=== PATIENT | male | born 1935 | race Caucasian/White ===

== ENCOUNTER → 2021-02-18 | Outpatient (CLI) | payer MEDICARE ==
[2013-11-12 15:54] VITALS: BP 143/67
[~2021-02-18] MED LIST: ACET-704 PO; ACET500T68 PO; ALOG1TAB8 PO; APIX5TAB PO; ASPI-482 PO; ATOR40TA59 PO; BUPIVACAINE MPF 0.25% 10 ML VIAL. ONE; CHOL100013 PO; CYAN-25 PO; DABI150C PO; DOCU-158 PO; FURO-68 PO; GLIP10TA13 PO; HYDR-3164 PO; IBUP-1060 PO; INSU100V13 SQ; LIDO700A21 TP; LOSA-73 PO; METF10007 PO; METO50TA6 PO; OMEP20CA16 PO; PRAV40TA2 PO; TAMS0.4C2 PO; methylPREDNISolone ACETATE 40 MG/ML VIAL. ONE
--- NOTE | 2021-02-18 13:09 | PDOC1 ---
INITIAL PAIN CONSULT DATE OF SERVICE: DOS: DATE: 02/18/21 TIME: 13:01 CHIEF COMPLAINT: Chief Complaint: Left flank pain HISTORY OF PRESENT ILLNESS: 85-year-old male presents history of pain left flank and left low thoracic cage pain for many years not the result of any specific injury or accident that he is aware of getting worse with time and with rotation of motion as well as standing changing positions from sitting to standing and vice versa patient reports has been waking her from sleep occasionally but not every night but can once or twice most nights patient reports is worse with walking and standing and exacerbation no significant pain with deep breathing or respiratory excursion. Patient reports he has had multiple treatments over the years for a back pain and hip pain but this is different than on the left side only in the flank and inferior aspect of the rib cage on the left and around to radiating anteriorly to the flank and some anteriorly into the upper quadrant of the left abdomen. Patient also reports pain in the posterior hips bilaterally. Patient rates his disability from 0-10 10 me the worst is an 8 with him how responsibilities recreation 9 with social activity occupation 10 essential hyper 3 with self-care and 1 with life support activities. Patient is taking Tylenol as well as using lidocaine patch both of which helped by about 20 to 30%. Patient has not had any diagnostic studies this time is not had any physical therapy or other treatment modalities. Patient recently followed up with his neurosurgeon who is recommending conservative treatment. PAST MEDICAL HISTORY: PMH: Diabetes, hearing loss, arthritis, atrial fibrillation PREVIOUS SURGERIES: Past Surgical Hx: Lumbar laminectomy, bilateral cataract extraction, right hip joint replacement CURRENT MEDICATIONS: Current Meds: Active Scripts Medications Dose Route/Sig Max Daily Dose Days Date Category Dose Instructions Eliquis (Apixaban) 5 Mg Tablet 5 Mg PO BID 02/18/21 Reported Levemir (Insulin Detemir) 100 Unit/1 Ml Vial 20 Unit SQ DAILY 02/18/21 Reported Lidocaine PATCH (Lidocaine) 1 Each Adh..patch 2 Each TP DAILY 02/18/21 Reported REMOVE AFTER 12 HOURS Atorvastatin Calcium 40 Mg Tablet 1 Tab PO DAILY 02/18/21 Reported Kazano 12.5-1,000 Mg Tablet (Alogliptin Neeraj/Metformin Hcl) 1 Each Tablet 1 Each PO DAILY 02/18/21 Reported Acetaminophen 500 Mg Tablet 2 Tab PO PRN Q6HRS PRN 15 02/18/21 Reported Aspir 81 (Aspirin) 81 Mg Tablet.dr 81 Mg PO DAILY 11/09/13 Reported Vitamin B-12 (Cyanocobalamin (Vitamin B-12)) 1,000 Mcg Tablet 1,000 Mcg PO DAILY 11/09/13 Reported ALLERGIES; Allergies: Coded Allergies: morphine (Unverified Allergy, Intermediate, Nausea and Vomiting, 11/12/13) FAMILY HISTORY: Family Hx: No major medical problems or conditions that he is aware of. SOCIAL HISTORY: Social Hx: Patient drinks alcohol about twice a day does not smoke not use any illegal illicit or recreational drugs lives with his spouse has 4 children living at home lives locally in [facility] and is currently retired. REVIEW OF SYSTEMS: ROS: Positive for those items mentioned in history of present illness, all systems are reviewed, otherwise negative ,and are complete full and well-documented on patient's chart. PHYSICAL EXAM: VS: Blood pressure is 132/76 pulse 87 respirations 18 temperature is 98.9 F height is 6 foot weight is 217 pounds PE: PHYSICAL EXAMINATION: GENERAL: The patient is awake, alert, oriented, appropriate, very pleasant in demeanor, patient companied by his . HEENT: Shows normocephalic, atraumatic. Extraocular movements are intact and symmetrical. Oral cavity: Mucous membranes moist and pink. NECK: Shows anterior throat supple without palpable lymphadenopathy noted. Swallow reflex symmetrical. CHEST: Shows normal on inspection. Breath sounds are clear bilaterally, distant but no rales rhonchi wheezes auscultated. HEART: Shows S1, S2 clear. No murmurs auscultated. ABDOMEN: Soft, nontender, nondistended. No palpable organomegaly is noted. BACK: Shows spine grossly in the midline. Normal-appearing cervical lordotic curvature. There is slightly increased thoracic kyphosis, some minor flattening of the lumbar lordotic curvature. Patient's rib cage shows significant tenderness over the inferior rib margin on the left only not the right without any palpable fractures or healed fractures but with significant tenderness in the distal aspect of the T10-T11 and T12 ribs on the left side and continuing to the mid axillary line with some minor radiation to the left upper quadrant but only minimal right side is nontender without radiation. Patient shows good excursion full deep breath in and he will exhale without increase in pain. Lumbar paraspinous muscles show symmetrical on inspection, on palpation shows some moderate tenderness diffusely throughout the upper, middle and lower distribution of the paraspinous muscles without specific trigger points, without radiation of pain. The patient has good rotational motion of the lumbar spine, both laterally as well as extension and flexion without significant difficulty. No tenderness over the spinous processes, or sacrum but significant tenderness over the posterior superior iliac spine and the superior aspect of the sacroili ac joints right equal to left without radiation. EXTREMITIES: Lower extremities show deep tendon reflexes 1+ in the patellar and tendo calcaneus tendons. Motor exam is 4 on a scale of 5 with right dorsiflexion, extension, quadriceps and hamstring flexion and 4/5 on the left. Peripheral pulses are 1+ posterior tibial. No peripheral edema is noted bilaterally. Lower extremities are warm and dry to touch, equal in color and appearance. SKIN: Shows warm and dry, good turgor. No edema. No sores, rashes or bruising throughout. IMPRESSION: Impression: 85-year-old male with long history of left thoracic rib pain radiating anteriorly to the flank and left upper quadrant Previous lumbar laminectomy Diabetes Arthritis Atrial fibrillation Plan: Options were discussed with the patient patient spouse who accompanied him his visit today. We discussed conservative medical management physical therapies as well as interventional techniques. Patient would like pursue injection techniques. We discussed intercostal blocks on the left using description as well as anatomical models to describe the procedure. Risks discussed including but not limited to bleeding infection possibility of intravascular injection sequelae spread local anesthetic and numbness steroid medication including increased blood glucose as well as poor results regarding pain control and closure fluoroscopy. Patient understands wishes to proceed. Patient return to clinic in approximately 1 week for follow-up, was counseled as to return appointment, activity level, and side effect to be aware of. Patient in prone position under sterile prep and drape using C-arm fluoroscopic guidance left thoracic cage was identified and the [id number] ribs were identified, using external radial opaque marker using a 25-gauge needle was entered at the inferior aspect of the rib margin at each level 2 walk off the rib under the rib inferiorly. Negative aspiration was noted at this time solution of 1 cc of 0.2 thousand mepivacaine and a total of 40 mg Depo-Medrol of 3 injections was injected with negative aspiration each injection site for the T10, T11, T12 inferior rib margin. Patient tolerated procedure well and had no complications. ALKA TRAN MD Feb 18, 2021 13:09
--- NOTE | 2021-02-18 13:10 | PDOC4 ---
Procedure Note: ICD 10 Code: ICD 10 Code: R07.82 Procedure Note: Patient was consented for left intercostal blocks with fluoroscopic guidance. Risks discussed including but not limited to bleeding infection possibility of intravascular injection sequelae spread local anesthetic numbness, pneumothorax, side effects steroid medications post fluoroscopy and portals regarding pain control. Patient understands wished to proceed Patient in prone position under sterile prep and drape using C-arm fluoroscopic guidance left thoracic cage was identified and the [id number] ribs were identified, using external radial opaque marker using a 25-gauge needle was entered at the inferior aspect of the rib margin at each level 2 walk off the rib under the rib inferiorly. Negative aspiration was noted at this time solution of 1 cc of 0.2 thousand mepivacaine and a total of 40 mg Depo-Medrol of 3 injections was injected with negative aspiration each injection site for the T10, T11, T12 inferior rib margin. Patient tolerated procedure well and had no complications. ALKA TRAN MD Feb 18, 2021 13:10
== END | disposition home or self-care (01) ==
LOC: PNCL 11:44
PROVIDERS: ATTEND Anesthesiology
DX: R07.82 Intercostal pain (principal); R10.9 Unspecified abdominal pain; E11.9 Type 2 diabetes mellitus without complications; M19.90 Unspecified osteoarthritis, unspecified site; I48.91 Unspecified atrial fibrillation; E78.00 Pure hypercholesterolemia, unspecified; E66.9 Obesity, unspecified; G47.30 Sleep apnea, unspecified; Z86.73 Personal history of transient ischemic attack (TIA), and cerebral infarction without residual deficits; Z85.828 Personal history of other malignant neoplasm of skin; Z87.891 Personal history of nicotine dependence; Z79.82 Long term (current) use of aspirin; Z79.4 Long term (current) use of insulin; Z79.899 Other long term (current) drug therapy; Z90.49 Acquired absence of other specified parts of digestive tract; Z98.890 Other specified postprocedural states; Z72.89 Other problems related to lifestyle; Z88.6 Allergy status to analgesic agent
CPT/HCPCS: 64420; 64421; 77002; J1030; J3490

== ENCOUNTER → 2021-02-24 | Outpatient (CLI) | payer MEDICARE ==
[2013-11-12 15:54] VITALS: BP 143/67
[~2021-02-24] MED LIST changes: +IOHEXOL 180 MG/ML 10 ML VIAL. ONE; +methylPREDNISolone ACETATE 80 MG/ML VIAL. ONE
--- NOTE | 2021-02-24 12:16 | PDOC ---
Progress Note - Pain Clinic Date of Service: DOS: DATE: 02/24/21 TIME: 12:12 Diagnosis: Dx: Left-sided intercostal pain Bilateral sacroiliitis History or Present Illness: HPI: 85-year-old male returns for follow-up status post left intercostal blocks T10- T11T12 on February 18. Patient did very well about 90% improvement after the injections I was left thorax is feeling much better patient reports her chief complaint today is low back and posterior "hip" pain bilaterally right seems equal to left worse with walking standing changing positions getting up from a seated position and staying on his feet he is using a walker to ambulate but this only helps a slight amount patient report is aching and dull cramping as well also some cramps in the legs which is new from his last visit patient reports is better with lying down sitting for prolonged periods can exacerbate the pain as well patient rates it as a 9 on scale 10 is worse over the past week 8 on average 7 its least is 8 today patient reports it generally does not awaken him from sleep at night always have some cramping in his legs now. Patient reports no bowel or bladder incontinence. Physical Exam: VS: Blood pressure is 119/72 pulse 94 respirations 18 temperature 98.1 F PE: PHYSICAL EXAMINATION: GENERAL: The patient is awake, alert, oriented, appropriate, very pleasant [facility], patient [place] by his HEENT: Shows normocephalic, atraumatic. Extraocular movements are intact and symmetrical. NECK: Shows anterior throat supple without palpable lymphadenopathy noted. Swallow reflex symmetrical. CHEST: Shows normal on inspection. Breath sounds are clear bilaterally, distant but no rales or rhonchi. HEART: Shows S1, S2 clear. No murmurs auscultated. ABDOMEN: Soft, nontender, nondistended. No palpable organomegaly is noted. BACK: Shows spine grossly in the midline. Normal-appearing cervical lordotic curvature. There is slightly increased thoracic kyphosis, some minor flattening of the lumbar lordotic curvature. Lumbar paraspinous muscles show symmetrical on inspection, on palpation shows some moderate tenderness diffusely throughout the upper, middle and lower distribution of the paraspinous musculature, but without specific trigger points, without radiation of pain. The patient has good rotational motion of the lumbar spine, both laterally as well as extension and flexion without significant difficulty. Patient sacroiliac region shows significant tenderness over the posterior superior iliac spines bilaterally somewhat worse on the right than the left in the superior aspect of the sacroiliac joint. No radiation is demonstrated bilaterally with palpation. EXTREMITIES: Lower extremities show deep tendon reflexes 1+ in the patellar and tendo calcaneus tendons. Motor exam is 4 on a scale of 5 with right dorsiflexion, extension, quadriceps and hamstring flexion and 4/5 on the left. Peripheral pulses are 1+ posterior tibial. No peripheral edema is noted bilaterally. Lower extremities are warm and dry to touch, equal in color and appearance. Gaenslen's maneuver is mildly positive bilaterally with posterior displacement of the leg and external rotation. SKIN: Shows warm and dry, good turgor. No edema. No sores, rashes or bruising throughout. Procedure: Procedure: Options were discussed with the patient. Patient chart was reviewed as his current medication regimen updated current review of systems updated today as well. We will proceed with bilateral sacroiliac joint injections today with fluoroscopic guidance. Risk were discussed including but not limited to bleeding infection possibility of intravascular injection sequelae spread local anesthetic numbness side effects of steroid medication, exposure to fluoroscopy and poor results regarding pain control. Patient understands wished to proceed. Patient will return to clinic in approximately 2 weeks for follow-up, was counseled as to return appointment, activity level, and side effects to be aware of. Medication Injected: Med Injected: Under sterile prep and drape using C-arm fluoroscopic guidance, bilateral sacroiliac joints injected using 3 cc 0.25% bupivacaine +60 mg Depo-Medrol +1.5 cc contrast, each, after negative aspiration. Condition at discharge is stable, patient tolerated procedure well and had no complications. Condition at Discharge: Condition at Discharge: Condition at discharge stable, patient Carole the procedure well and had no complications. ALKA TRAN MD Feb 24, 2021 12:16
--- NOTE | 2021-02-24 12:17 | PDOC4 ---
Procedure Note: ICD 10 Code: ICD 10 Code: M4 6.1 Procedure Note: Patient was consented for bilateral sacroiliac joint injections with fluoroscopic guidance. Risk were discussed including but not limited to bleeding infection possibility of intravascular injection and sequelae spread local anesthetic numbness side effects steroid medication exposure fluoroscopy and poor results regarding pain control. Patient understands wished to proceed. Under sterile prep and drape using C-arm fluoroscopic guidance, bilateral sacroiliac joints injected using 3 cc 0.25% bupivacaine +60 mg Depo-Medrol +1.5 cc contrast, each, after negative aspiration. Condition at discharge is stable, patient tolerated procedure well and had no complications. ALKA TRAN MD Feb 24, 2021 12:17
== END | disposition home or self-care (01) ==
LOC: PNCL 11:09
PROVIDERS: ATTEND Anesthesiology
DX: M46.1 Sacroiliitis, not elsewhere classified (principal); R07.82 Intercostal pain; E78.00 Pure hypercholesterolemia, unspecified; I48.91 Unspecified atrial fibrillation; E66.9 Obesity, unspecified; G47.30 Sleep apnea, unspecified; E11.9 Type 2 diabetes mellitus without complications; K21.9 Gastro-esophageal reflux disease without esophagitis; M19.90 Unspecified osteoarthritis, unspecified site; Z86.73 Personal history of transient ischemic attack (TIA), and cerebral infarction without residual deficits; Z87.891 Personal history of nicotine dependence; Z79.82 Long term (current) use of aspirin; Z79.4 Long term (current) use of insulin; Z79.899 Other long term (current) drug therapy; Z98.890 Other specified postprocedural states; Z88.6 Allergy status to analgesic agent; Z72.89 Other problems related to lifestyle
CPT/HCPCS: G0260; J1030; J1040; J3490; Q9965; 27096